=== PATIENT | male | born 1980 | race Caucasian/White ===

== ENCOUNTER 2022-09-29 21:22 | Emergency (ER) | payer MEDICAID ==
[~2022-09-29] VITALS: Ht 177.8 cm; Wt 77.1 kg
[2022-09-29 22:07] VITALS: BP 120/67
[2022-09-29] MEDS ORDERED: CEPH500C2 PO (22:17)
[2022-09-29] MEDS ORDERED: SULF1TAB48 PO (22:17)
--- NOTE | 2022-09-29 22:24 | NUR ---
Patient discharged to home in stable condition. Written and verbal after care instructions given. Patient verbalizes understanding of instruction.
== END 2022-09-29 22:24 | disposition home or self-care (01) ==
LOC: ER 21:24
DX: M79.671 Pain in right foot (principal); W45.8XXA Other foreign body or object entering through skin, initial encounter; Y93.18 Activity, surfing, windsurfing and boogie boarding; Y92.832 Beach as the place of occurrence of the external cause; Y99.8 Other external cause status